=== PATIENT | female | born 1995 | race Two or more races ===

== ENCOUNTER 2018-01-02 15:41 | Outpatient (CLI) | payer OTHER ==
--- NOTE | 2018-01-03 10:13 | Ultrasound Report ---
Procedure Date: 01/02/2018 Accession Number: [id number] / [id number] Procedure: US - OB First Trimester CPT Code: FULL RESULT: EXAM: FIRST TRIMESTER OBSTETRIC ULTRASOUND (Less than 11 weeks) EXAM DATE: 01/02/2018 04:09 PM. CLINICAL HISTORY: Positive test. LMP: Unknown. COMPARISONS: None. TECHNIQUE: Transabdominal and transvaginal ultrasound examination with static image documentation. CLINICAL DATES: Unknown. ASSESSMENT: Gestational Sac: Single intrauterine. Mean gestational sac diameter: 20.8 mm = 6 weeks 4 days. Embryo: CRL (crown-rump length) 12.5 mm = 7 weeks 3 days. Cardiac activity: 142 beats per minute. Yolk sac: 3.1 mm. Amniotic fluid: Not accurately assessed at this gestational age. Early placenta: Not visible at this gestational age. Other: Small perigestational collection measuring 11 x 7 x 6 mm is seen. MATERNAL STRUCTURES: Uterus: Anteverted. Unremarkable. Cervix: Closed. Right Ovary/Adnexa: A tiny 8 mm cyst is seen in the right adnexa adjacent to the ovary. Within the ovary a small collapsed corpus luteal cyst is suggested. The ovary measures 3.0 x 2.2 x 2.0 cm, volume 7 cc. Left Ovary/Adnexa: Left ovary appears normal. Several small simple appearing cysts are seen in the left adnexa adjacent to the left ovary, largest measuring 2.8 cm. The ovary measures 2.4 x 1.6 x 2.0 cm, volume 4 cc. Free Fluid: Minimal, left adnexa region. Other: None. IMPRESSION: 1. Single viable intrauterine at EGA 7 weeks 3 days with MODESTA 08/18/18 based on crown-rump length. 2. Assigned dating is MODESTA 08/18/18 based on current ultrasound. 3. Minimal perigestational fluid collection seen. 4. Simple-appearing paraovarian cyst seen bilaterally, largest measuring 2.8 cm. Ovaries are otherwise normal. RADIA
== END 2018-01-02 15:42 | disposition home or self-care (01) ==
LOC: DI 15:41
PROVIDERS: ATTEND Nurse Practitioner Obstetrics & Gynecology
DX: Z32.01 Encounter for pregnancy test, result positive (principal)
CPT/HCPCS: 76801; 76817

== ENCOUNTER 2018-01-10 10:35 | Outpatient (CLI) | payer OTHER ==
[2018-01-10 11:18] LABS: BASOPHILS # (AUTO) 0.1 10^3/uL (0.0-0.1); BASOPHILS % (AUTO) 0.7 %; EOSINOPHILS # (AUTO) 0.1 10^3/uL (0.0-0.7); EOSINOPHILS % (AUTO) 0.7 %; HGB - HEMOGLOBIN 13.2 g/dL (12.0-16.0); LYMPHOCYTES # (AUTO) 1.6 10^3/uL (1.5-3.5); LYMPHOCYTES % (AUTO) 20.6 %; MEAN CORPUSCULAR HEMOGLOBIN 29.1 pg (27.0-31.0); MEAN CORPUSCULAR HGB CONC 35.1 g/dL (32.0-36.0); MEAN PLATELET VOLUME 8.9 fL (7.9-10.8); MONOCYTES # (AUTO) 0.4 10^3/uL (0.0-1.0); MONOCYTES % (AUTO) 4.6 %; NEUTROPHILS # (AUTO) 5.6 10^3/uL (1.5-6.6); NEUTROPHILS % (AUTO) 73.4 %; PLT - PLATELET COUNT 203 10^3/uL (130-450); RED BLOOD COUNT 4.53 10^6/uL (4.20-5.40); WHITE BLOOD COUNT 7.6 x10^3/uL (4.8-10.8)
[2018-01-10 11:37] LABS: BILIRUBIN,URINE NEGATIVE (NEGATIVE); GLUCOSE, URINE (UA) NEGATIVE (NEGATIVE); KETONES,URINE (UA) NEGATIVE (NEGATIVE); LEUKOCYTE ESTERASE, URINE NEGATIVE (NEGATIVE); NITRITE,URINE NEGATIVE (NEGATIVE); OCCULT BLOOD,URINE NEGATIVE (NEGATIVE); PH,URINE 6.5 PH (5.0-7.5); PROTEIN,URINE NEGATIVE (NEGATIVE); UROBILINOGEN,URINE 0.2 (NORMAL) E.U./dL (NORMAL)
[2018-01-10 11:38] LABS: CLARITY,URINE CLEAR (CLEAR)
[2018-01-10 11:45] LABS: BACTERIA,URINE Rare /HPF (None Seen); RBC,URINE 0-5 /HPF (0-5); SQUAMOUS EPITHELIAL CELL,UR FEW Squamous (<= Few)
[2018-01-11 13:01] LABS: HEPATITIS B SURFACE ANTIGEN NON-REACTIVE (NON-REACTIVE)
[2018-01-11 13:34] LABS: HEPATITIS C ANTIBODY NON-REACTIVE (NON-REACTIVE)
[2018-01-11 14:07] LABS: HIV AG/AB 4TH GEN NON-REACTIVE (NON-REACTIVE)
== END 2018-01-10 10:36 | disposition home or self-care (01) ==
LOC: LAB 10:35
PROVIDERS: ATTEND Nurse Practitioner Obstetrics & Gynecology
DX: Z36.9 Encounter for antenatal screening, unspecified (principal)
CPT/HCPCS: 36415; 80306; 81001; 81599; 85025; 86592; 86762; 86803; 86850; 86900; 86901; 87340; 87389; 87491; 87591

== ENCOUNTER 2018-01-10 12:00 | Outpatient (CLI) | payer OTHER ==
[2018-01-10 14:50] LABS: MUDS CUTOFF CONCENTRATIONS CUTOFF CONC BELOW:
[2018-01-10 15:46] LABS: AMPHETAMINE SCREEN,URINE NEGATIVE (NEGATIVE); BENZODIAZEPINES SCREEN, URINE NEGATIVE (NEGATIVE); COCAINE SCREEN URINE NEGATIVE (NEGATIVE); METHADONE SCREEN, URINE NEGATIVE (NEGATIVE); METHAMPHETAMINES SCREEN, URINE NEGATIVE (NEGATIVE); OPIATE SCREEN, URINE NEGATIVE (NEGATIVE); OXYCODONE SCREEN, URINE NEGATIVE (NEGATIVE); PROPOXYPHENE SCREEN, URINE NEGATIVE (NEGATIVE); TRICYCLIC ANTIDEPRESSANT,URINE NEGATIVE (NEGATIVE)
== END 2018-01-10 12:01 | disposition home or self-care (01) ==
LOC: LAB.R 12:00
PROVIDERS: ATTEND Nurse Practitioner Obstetrics & Gynecology
DX: Z36.9 Encounter for antenatal screening, unspecified (principal)
CPT/HCPCS: 80306; 87491; 87591

== ENCOUNTER 2018-02-07 14:22 | Outpatient (CLI) | payer OTHER, MEDICAID ==
[2018-02-07 16:35] LABS: HB2 TOTAL 14.2 g/dL; HEMOGLOBIN A1C 0.42 g/dL; HEMOGLOBIN A1C % 4.9 % (4.6-6.2)
== END 2018-02-07 14:23 | disposition home or self-care (01) ==
LOC: LAB 14:22
PROVIDERS: ATTEND Registered Nurse
DX: O99.211 Obesity complicating pregnancy, first trimester (principal); R46 Symptoms and signs involving appearance and behavior
CPT/HCPCS: 36415; 81599; 82950; 83036; 84597

== ENCOUNTER 2018-03-07 09:56 | Outpatient (CLI) | payer OTHER, MEDICAID | END 2018-03-07 09:57 | disposition home or self-care (01) | LOC: LAB 09:56 | PROVIDERS: ATTEND Registered Nurse | DX: R46 Symptoms and signs involving appearance and behavior (principal) | CPT/HCPCS: 36415; 81599 ==

== ENCOUNTER 2018-03-24 14:22 | Emergency (ER) | payer OTHER, MEDICAID ==
--- NOTE | 2018-03-24 14:41 | ED Physician Documentation ---
History of Present Illness - Stated complaint Stated Complaint: CHEST PX - Chief complaint Chief Complaint: General - Additonal information Additional information: hx from pt 23 y/o f approx 18 weeks uncomplicated course so far pt states she has had episodes of soa and chest pressure throughout her but more severe and lasting up to a few hr more recently so came to ER to get it checked out CP is described as pressure, anterior, relieved with rest no fever no cough no travel no sig or asymmetrical leg swelling Review of Systems Constitutional: denies: Fever, Chills Cardiac: reports: Chest pain / pressure Respiratory: reports: Dyspnea. denies: Cough GI: denies: Abdominal Pain, Nausea, Vomiting : reports: Now EGA Musculoskeletal: denies: Extremity swelling Endocrine: denies: Easy bruising / bleeding Immunocompromised: denies: Immunocompromised PD PAST MEDICAL HISTORY - Present Medications Home Medications: Ambulatory Orders Medication Instructions Recorded Confirmed Metformin HCl 1,500 mg PO 03/24/18 raNITIdine [Zantac] 150 mg PO BID #14 tablet 03/24/18 - Allergies Allergies/Adverse Reactions: Allergies Allergy/AdvReac Type Severity Reaction Status Date / Time No Known Drug Allergies Allergy Verified 03/24/18 14:27 PD ED PE NORMAL - Vitals Vital signs reviewed: Yes - HEENT HEENT: Atraumatic - Cardiac Cardiac: RRR, No murmur - Respiratory Respiratory: No respiratory distress, Clear bilaterally - Abdomen Abdomen: Soft, Non tender, Other (gravid) - Derm Derm: Normal color - Extremities Extremities: Normal ROM s pain, No edema, No calf tenderness / cord - Neuro Neuro: Alert and oriented X 3 Results - Vitals Vitals: Vital Signs - 24 hr 03/24/18 03/24/18 14:24 15:11 Temperature 36.9 C Heart Rate 86 86 Respiratory 16 Rate Blood Pressure 112/80 O2 Saturation 99 Oxygen O2 Source Room air - EKG (time done) 1430 Rate: Rate (enter#) (88) Rhythm: NSR [place]: Normal Intervals: Normal HI Ischemia: Normal ST segments Other comments: Other comments (no S1 Q3 T3 RAD RBBB or tachycardia) - Labs Labs: Laboratory Tests 03/24/18 03/24/18 03/24/18 14:55 14:55 14:55 WBC 8.7 RBC 4.41 Hgb 13.0 Hct 36.7 L MCV 83.2 MCH 29.4 MCHC 35.3 RDW 14.0 Plt Count 187 MPV 9.4 Neut # (Auto) 6.7 H Lymph # (Auto) 1.6 [place] # (Auto) 0.4 Eos # (Auto) 0.0 Baso # (Auto) 0.1 Absolute Nucleated RBC 0.00 Nucleated RBC % 0.0 D-Dimer Sodium 136 Potassium 4.2 Chloride 105 Carbon Dioxide 24 Anion Gap 7.0 BUN < 5 L Creatinine 0.5 Estimated GFR (MDRD) 150 Glucose 88 Calcium 8.8 Total Bilirubin 0.4 AST 18 ALT 14 Alkaline Phosphatase 50 Troponin I < 0.04 Total Protein 6.6 L Albumin 3.7 Globulin 2.9 Albumin/Globulin Ratio 1.3 Lipase 28 03/24/18 14:55 WBC RBC Hgb Hct MCV MCH MCHC RDW Plt Count MPV Neut # (Auto) Lymph # (Auto) [place] # (Auto) Eos # (Auto) Baso # (Auto) Absolute Nucleated RBC Nucleated RBC % D-Dimer 232.2 Sodium Potassium Chloride Carbon Dioxide Anion Gap BUN Creatinine Estimated GFR (MDRD) Glucose Calcium Total Bilirubin AST ALT Alkaline Phosphatase Troponin I Total Protein Albumin Globulin Albumin/Globulin Ratio Lipase PD MEDICAL DECISION MAKING - ED course ED course: no fever cough and clear lungs so do not think CXR will be helpful and will just expose fetus to radiation EKG s acute ischemia and neg trop after numerous episodes of pain lasting at least 3 hr for a week not anemic and d-dimer neg - plus not tachy tachypneic or hypoxic - so doubt PE might merit an echo but will need to be done as an outpt as gone for the day now Departure - Departure Disposition: 01 Home, Self Care Clinical Impression: Chest pain Qualifiers: Chest pain type: unspecified Qualified Code(s): R07.9 - Chest pain, unspecified Condition: Good Instructions: ED Chest Pain Atypical Unkn Cause Follow-Up: QUENTIN SARGENT PA-C [Primary Care Provider] - [facility] [Provider Group] Prescriptions: raNITIdine [Zantac] 150 mg PO BID #14 tablet Comments: All of your tests came back fine The EKG and blood work do not indicate a heart attack. Your lungs sound clear and you don't have a fever or cough, so I doubt pneumonia You are not anemic And the blood test for clots in your lungs was negative too. So we have ruled out some of the most dangerous causes of chest pain and trouble breathing But I am not sure what is causing the symptoms There are heart problems that can develop in and I recommend your OB order an ultrasound of your heart called an echocardiogram (that test can't be done in the ER at this time) It is also possible the chest pain is due to heart burn which is common in and gets worse as the you get further along - you can try taking zantac which is safe in
[2018-03-24 15:02] LABS: BASOPHILS # (AUTO) 0.1 10^3/uL (0.0-0.1); BASOPHILS % (AUTO) 0.6 %; EOSINOPHILS % (AUTO) 0.5 %; LYMPHOCYTES # (AUTO) 1.6 10^3/uL (1.5-3.5); LYMPHOCYTES % (AUTO) 17.8 %; MEAN CORPUSCULAR HEMOGLOBIN 29.4 pg (27.0-31.0); MEAN CORPUSCULAR HGB CONC 35.3 g/dL (32.0-36.0); MEAN CORPUSCULAR VOLUME 83.2 fL (81.0-99.0); MEAN PLATELET VOLUME 9.4 fL (7.9-10.8); MONOCYTES # (AUTO) 0.4 10^3/uL (0.0-1.0); MONOCYTES % (AUTO) 4.8 %; NEUTROPHILS # (AUTO) 6.7 10^3/uL (1.5-6.6); NEUTROPHILS % (AUTO) 76.3 %; PLT - PLATELET COUNT 187 10^3/uL (130-450); RED BLOOD COUNT 4.41 10^6/uL (4.20-5.40); WHITE BLOOD COUNT 8.7 x10^3/uL (4.8-10.8)
[2018-03-24 15:27] LABS: ALBUMIN 3.7 g/dL (3.2-5.5); ALBUMIN/GLOBULIN RATIO 1.3 (1.0-2.2); ALKALINE PHOSPHATASE 50 IU/L (42-121); ALT ALANINE AMINOTRANSFERASE 14 IU/L (10-60); AST ASPARTATE AMINOTRANSFERASE 18 IU/L (10-42); BILIRUBIN,TOTAL 0.4 mg/dL (0.2-1.0); BUN - BLOOD UREA NITROGEN < 5 mg/dL (6-20); CALCIUM 8.8 mg/dL (8.5-10.3); CARBON DIOXIDE - CO2 24 mmol/L (21-32); CHLORIDE 105 mmol/L (101-111); CREATININE 0.5 mg/dL (0.4-1.0); GFR - MDRD 150 (>89); GLUCOSE 88 mg/dL (70-100); LIPASE 28 U/L (22-51); SODIUM 136 mmol/L (135-145); TOTAL PROTEIN 6.6 g/dL (6.7-8.2)
[2018-03-24 16:08] VITALS: BP 101/72
== END 2018-03-24 16:25 | disposition home or self-care (01) ==
LOC: ED 14:22
DX: O26.892 Other specified pregnancy related conditions, second trimester (principal); R07.9 Chest pain, unspecified; Z3A.18 18 weeks gestation of pregnancy
CPT/HCPCS: 36415; 80053; 83690; 84484; 85025; 85379; 93005; 99283

== ENCOUNTER 2018-03-29 12:31 | Outpatient (CLI) | payer OTHER, MEDICAID ==
--- NOTE | 2018-03-30 10:22 | Ultrasound Report ---
Reason: ENCOUNTER FOR SUPRVSN OF NORMAL ,SECOND T Procedure Date: 03/29/2018 Accession Number: [id number] / [id number] Procedure: US - OB Detailed Eval CPT Code: FULL RESULT: EXAM: COMPLETE OBSTETRICAL ULTRASOUND EXAM DATE: 03/29/2018 02:49 PM. CLINICAL HISTORY: anatomic survey. COMPARISON: None. TECHNIQUE: Real-time sonographic evaluation of the fetus performed by the home health caregiver. Multiple district sales representative static images were saved for review. Additional transvaginal imaging to more accurately evaluate cervical length/placental position/etc. DATING: Established EGA 20 weeks 2 days with MODESTA 08/16/2018 based on LMP. EGA 20 weeks 5 days with MODESTA 08/18/2018 based on first ultrasound. EGA 20 weeks 2 days with MODESTA 08/16/2018 based on the current ultrasound. GENERAL EVALUATION Addison . Cardiac activity: 152 bpm. movement: Visualized. Presentation: Cephalic. Placenta: Posterior position. No evidence for previa. Umbilical cord: 3 vessel cord. Central placental cord origin. Amniotic fluid: Subjectively normal. MVP 3.1 cm. ATUL 10.4 BIOMETRY Bi-Parietal Diameter (BPD): 4.5 cm, 19 weeks 5 days Head Circumference (HC): 17.4 cm, 19 weeks 6 days Abdominal Circumference (AC): 14.8 cm, 20 weeks 0 days Femur Length (FL): 3.0 cm, 19 weeks 0 days Estimated Weight: 306 g. Percentile not calculated on this software under 22 weeks. ANATOMY The intracranial structures, profile, face/nose/lips, spine, 4 chamber heart and outflow tracts, stomach, abdominal wall and cord insertion, diaphragm, kidneys, bladder, and extremities were visualized and demonstrate no abnormality. MATERNAL STRUCTURES Uterus: Unremarkable. Cervix: Long and closed. Transabdominal length 4.2 cm. Right ovary/adnexa: Unremarkable. Left ovary/adnexa: Unremarkable. Free fluid: None. IMPRESSION: 1. Addison live intrauterine with gestational age 20 weeks 2 days based on LMP. 2. Estimated weight is within expected limits for assigned dating. 3. No anatomic abnormalities are detected at this time. RADIA
== END 2018-03-29 12:32 | disposition home or self-care (01) ==
LOC: DI 12:31
PROVIDERS: ATTEND Registered Nurse
DX: Z34.82 Encounter for supervision of other normal pregnancy, second trimester (principal)
CPT/HCPCS: 76811

== ENCOUNTER 2018-05-11 12:57 | Outpatient (CLI) | payer OTHER, MEDICAID ==
[2018-05-11 13:22] LABS: HGB - HEMOGLOBIN 12.9 g/dL (12.0-16.0); MEAN CORPUSCULAR HEMOGLOBIN 29.2 pg (27.0-31.0); MEAN CORPUSCULAR HGB CONC 34.5 g/dL (32.0-36.0); MEAN CORPUSCULAR VOLUME 84.6 fL (81.0-99.0); MEAN PLATELET VOLUME 9.2 fL (7.9-10.8); RED BLOOD COUNT 4.44 10^6/uL (4.20-5.40); RED CELL DISTRIBUTION WIDTH 13.7 % (12.0-15.0); WHITE BLOOD COUNT 10.2 x10^3/uL (4.8-10.8)
== END 2018-05-11 12:58 | disposition home or self-care (01) ==
LOC: DI 12:57
PROVIDERS: ATTEND Registered Nurse
DX: R07.89 Other chest pain (principal); Z33.1 Pregnant state, incidental
CPT/HCPCS: 36415; 82950; 85027; 86850; 93306

== ENCOUNTER 2018-05-16 11:00 | Outpatient (CLI) | payer OTHER, MEDICAID | END 2018-05-16 11:01 | disposition home or self-care (01) | LOC: LAB 11:00 | PROVIDERS: ATTEND Registered Nurse | DX: O99.810 Abnormal glucose complicating pregnancy (principal) | CPT/HCPCS: 36415; 82951; 82952 ==

== ENCOUNTER 2018-05-29 14:32 | Outpatient (CLI) | payer OTHER, MEDICAID ==
--- NOTE | 2018-05-30 15:32 | Ultrasound Report ---
Reason: UTERINE SIZE DATE DISCREPANCY, ANTEPARTUM UNSP TRI Procedure Date: 05/29/2018 Accession Number: [id number] / [id number] Procedure: US - OB F/U or Repeat CPT Code: FULL RESULT: EXAM: FOLLOW-UP OBSTETRICAL ULTRASOUND EXAM DATE: 05/29/2018 03:34 PM. CLINICAL HISTORY: UTERINE SIZE DATE DISCREPANCY, COMPARISON: 03/29/2018 ultrasound TECHNIQUE: Real-time sonographic evaluation of the fetus performed by the ear mold laboratory technician. Multiple sales representative business courses static images were saved for review. DATING: Established EGA 28 weeks 6 days with MODESTA 08/15/2018 based on prior ultrasound and last menstrual period. EGA 29 weeks 6 days with MODESTA 08/08/2018 based on the current ultrasound. GENERAL EVALUATION Addison . Cardiac activity: 148 bpm. movement: Present Presentation: Cephalic. Placenta: Posterior position. Amniotic fluid: Normal ATUL 16.6 cm. MVP 6.1 cm. BIOMETRY Bi-Parietal Diameter (BPD): 7.6 cm, 30 weeks 3 days Head Circumference (HC): 28.2 cm, 30 weeks 6 days Abdominal Circumference (AC): 25.4 cm, 29 weeks 3 days Femur Length (FL): 5.5 cm, 29 weeks 0 days Estimated Weight: 1420grams IMPRESSION: 1. Addison intrauterine with gestational age 29 weeks 6 days based on composite ultrasound measurements today. 2. Estimated weight is 1420 g. 3. Normal interval growth compared to 03/29/2018. BRAYDONA
== END 2018-05-29 14:33 | disposition home or self-care (01) ==
LOC: DI 14:32
PROVIDERS: ATTEND Registered Nurse
DX: O26.843 Uterine size-date discrepancy, third trimester (principal); Z3A.29 29 weeks gestation of pregnancy
CPT/HCPCS: 76816

== ENCOUNTER 2018-07-10 13:04 | Outpatient (CLI) | payer OTHER, MEDICAID ==
--- NOTE | 2018-07-11 10:19 | Ultrasound Report ---
Reason: UTERINE SIZE DATE DISCREPANCY,ANTEPARTUM,UNSPECIFI Procedure Date: 07/10/2018 Accession Number: [id number] / [id number] Procedure: US - OB F/U or Repeat CPT Code: FULL RESULT: EXAM: FOLLOW-UP OBSTETRICAL ULTRASOUND EXAM DATE: 07/10/2018 02:00 PM. CLINICAL HISTORY: Uterine size-date discrepancy. COMPARISON: OB F/U OR REPEAT 05/29/2018 3:12 PM. TECHNIQUE: Real-time sonographic evaluation of the fetus performed by the him specialist. DATING: Established EGA 34 weeks 6 days with MODESTA 08/15/2018 based on physician stated dating. EGA 34 weeks 6 days with MODESTA 08/15/2018 based on the current ultrasound. GENERAL EVALUATION Addison . Cardiac activity: 140 bpm. movement: Visualized. Presentation: Cephalic. Placenta: Posterior position. Amniotic fluid: Normal. ATUL 14.5 cm. MVP 4.6 cm. BIOMETRY Bi-Parietal Diameter (BPD): 8.9 cm, 36 weeks 0 days Head Circumference (HC): 32.2 cm, 36 weeks 2 days Abdominal Circumference (AC): 30.3 cm, 34 weeks 2 days Femur Length (FL): 6.4 cm, 32 weeks 6 days Estimated Weight: 2392 g, 30th percentile for 34 weeks 6 days. ANATOMY: The kidneys and bladder are imaged. Right renal pelvis diameter measures 5.9 mm and left renal pelvis diameter 5.3 mm (both within normal limits at this gestational age). MATERNAL STRUCTURES Cervix: Long and closed. Transabdominal cervical length 5.0 cm. IMPRESSION: 1. Addison live intrauterine with gestational age 34 weeks 6 days based on stated MODESTA. 2. Estimated weight is within expected limits for assigned dating. 3. Normal interval growth compared to 05/29/2018. 4. Normal amniotic fluid volume. RADIA
== END 2018-07-10 13:05 | disposition home or self-care (01) ==
LOC: DI 13:04
PROVIDERS: ATTEND Registered Nurse
DX: O26.849 Uterine size-date discrepancy, unspecified trimester (principal); Z3A.34 34 weeks gestation of pregnancy
CPT/HCPCS: 76816

== ENCOUNTER 2018-07-21 11:58 | Outpatient (CLI) | payer OTHER, MEDICAID | END 2018-07-21 23:59 | disposition home or self-care (01) | LOC: LAB.R 11:58 | PROVIDERS: ATTEND Nurse Practitioner Obstetrics & Gynecology | DX: Z36.9 Encounter for antenatal screening, unspecified (principal) | CPT/HCPCS: 87491; 87591; 87797 ==

== ENCOUNTER 2018-07-21 14:33 | Outpatient (CLI) | payer OTHER, MEDICAID ==
[2018-07-22 11:35] LABS: HEPATITIS C ANTIBODY NON-REACTIVE (NON-REACTIVE)
[2018-07-22 14:16] LABS: HIV AG/AB 4TH GEN NON-REACTIVE (NON-REACTIVE)
[2018-07-25 11:41] LABS: HSV 1 IGG TYPE SPECIFIC AB <0.90 index; HSV 2 IGG TYPE SPECIFIC AB <0.90 index
== END 2018-07-21 14:34 | disposition home or self-care (01) ==
LOC: LAB 14:33
PROVIDERS: ATTEND Nurse Practitioner Obstetrics & Gynecology
DX: Z36.9 Encounter for antenatal screening, unspecified (principal)
CPT/HCPCS: 36415; 81599; 86592; 86695; 86696; 86803; 87389; 87491; 87591; 87797

== ENCOUNTER 2018-08-07 19:33 | Inpatient (IN) | payer OTHER, MEDICAID ==
[2018-08-07] MEDS ORDERED: PENICILLIN G POTASSIUM 5,000,000 UNIT in SODIUM CHLORIDE 0.9% MINIBAG 100 ML IV ONE (20:00)
[2018-08-07] MEDS ORDERED: ONDANSETRON 4 MG/2 ML VIAL IVP PRN ×2 (20:00→21:43)
--- NOTE | 2018-08-07 20:29 | HISTORY & PHYSICAL EXAMINATION ---
Admit History - Visit Reason Visit Reason: Other - : 1 Parity: 0 Premature: 0 Ectopic: 0 : 0 Care: positive: [facility] Risk/History: positive: None Complications This : positive: None - Mother's Labs Mother's Blood Type: positive: A Mother's RH: positive: Positive GBS: positive: Group B Strep Positive Rubella Status: positive: Immune Meds/Allgy - Home Medications Home Medications: Ambulatory Orders Medication Instructions Recorded Confirmed Metformin HCl 1,500 mg PO 03/24/18 raNITIdine [Zantac] 150 mg PO BID #14 tablet 03/24/18 - Allergies Allergies/Adverse Reactions: Allergies Allergy/AdvReac Type Severity Reaction Status Date / Time No Known Drug Allergies Allergy Verified 03/24/18 14:27 Review of Systems - Constitutional Constitutional: denies: Fatigue, Fever, Chills, Malaise - Eyes Eyes: denies: Blurred vision, Spots in vision, Vision loss, Dipolpia - Cardiovascular Cariovascular: denies: Irregular heart rate, Palpitations, Chest pain, Edema - Respiratory Respiratory: denies: Cough, SOB at rest - Gastrointestinal Gastrointestinal: denies: Abdominal pain, Constipation, Diarrhea, Nausea, Vomiting - Genitourinary Genitourinary: denies: Dysuria - Integumentary Integumentary: reports: Pruritis. denies: Rash - Psychiatric Psychiatric: denies: Depression, Anxiety Physical - Abdominal Exam Contraction Intensity: positive: Mild Uterine Resting Tone: positive: Soft - Monitoring Heart Rate Baseline: 130 Strip Review: positive: Category I - Presentation Presentation: positive: Vertex - Vaginal Exam Membranes: positive: Membranes intact Plan for Labor - Plan For Labor I expect patient to be DC'd or transferred within 96 hours.: Yes Plan for Labor: HPI: Ira is a 23yo @ 38.6wks gestation by LMP. [facility] prior to elective IOL at 39wks gestation. Her has been complicated only by episodes of SOB with subsequent echo which was WNL. She denies VB or Lof. Denies contractions. Reports +FM. She denies ARITA, visual disturbances, RUQ or epigastric pain and denies edema. She does not itching on the soles of her feet which is worsen at night which she had not previously mentioned in her visits. She states this has been going on for the last couple of weeks. Her has also been complicated by a hx of PCOS which did not require ovulation induction and her current obesity. Her early 1 hour GTT and Hgb A1C were WNL. Her 1 hr GTT was abnormal but her 3 hour GTT was WNL. Physical Exam: Normocephalic, atraumtic Mood is good PERRLA Heart RRR w/o M/G/R Lungs CTAB SVE deferred - last check in the office last week 3/-4/50/-2, vertex Bilateral LE's no edema Assessment: 23yo @ 38.5wks gestation Pre-induction administration of penicillin for GBS prophylaxis initiated GBS positive FHR Category I Plan: Continue administration of IV penicillin for GBS prophylaxis per protocol Epidural at 0000 with in-patient admission AROM and pitocin at 0100 on 08/08/2018 Anticipate spontaneous vaginal delivery. Pt and family in agreement with plan and deny further questions or concerns.
[2018-08-07] MEDS: LACTATED RINGERS 1,000 ML IV SCH (21:04)
[2018-08-07] MEDS: SODIUM CHLORIDE FLUSH 0.9% 10 ML SYRINGE IVP PRN (21:05)
[2018-08-07] MEDS ORDERED: fent/BUPIV 2 MCG/0.125% 250 ML EP ONE (21:30)
[2018-08-07 21:36] LABS: BASOPHILS # (AUTO) 0.1 10^3/uL (0.0-0.1); BASOPHILS % (AUTO) 0.8 %; EOSINOPHILS # (AUTO) 0.1 10^3/uL (0.0-0.7); EOSINOPHILS % (AUTO) 0.6 %; HGB - HEMOGLOBIN 12.3 g/dL (12.0-16.0); LYMPHOCYTES # (AUTO) 2.2 10^3/uL (1.5-3.5); LYMPHOCYTES % (AUTO) 21.1 %; MEAN CORPUSCULAR HGB CONC 33.2 g/dL (32.0-36.0); MEAN CORPUSCULAR VOLUME 81.5 fL (81.0-99.0); MEAN PLATELET VOLUME 9.3 fL (7.9-10.8); MONOCYTES # (AUTO) 0.6 10^3/uL (0.0-1.0); MONOCYTES % (AUTO) 5.6 %; NEUTROPHILS # (AUTO) 7.5 10^3/uL (1.5-6.6); NEUTROPHILS % (AUTO) 71.9 %; PLT - PLATELET COUNT 199 10^3/uL (130-450); RED BLOOD COUNT 4.55 10^6/uL (4.20-5.40); RED CELL DISTRIBUTION WIDTH 15.1 % (12.0-15.0); WHITE BLOOD COUNT 10.4 x10^3/uL (4.8-10.8)
--- NOTE | 2018-08-07 21:39 | ANESTHESIA ---
Pre-Anesthesia VS, & Labs - Diagnosis - Procedure Epidural Height 5 ft 3 in Weight (kg) 99.79 kg Body Mass Index 33.6 - Is Patient ?: Yes - Lab Results Lab results reviewed: Yes Home Medications and Allergies Active Medications Lactated Ringer's (Lr) 1,000 mls @ 100 mls/hr IV .Q10H CONNER Last Admin: 08/07/18 21:04 Dose: 100 mls/hr Penicillin G Potassium 2,500, (000 unit/ Sodium Chloride) 100 mls @ 200 mls/hr IV Q4H CONNER Oxytocin/Sodium Chloride (Pitocin/Sodium Chloride) 500 mls @ 1 mls/hr IV TITR CONNER; Protocol Ondansetron HCl (Zofran Inj) 4 mg IVP Q4HR PRN PRN Reason: Nausea / Vomiting Sodium Chloride (Normal Saline Flush 0.9%) 10 ml IVP 0100,0900,1700 CONNER Sodium Chloride (Normal Saline Flush 0.9%) 10 ml IVP PRN PRN PRN Reason: NEEDED PER PROVIDER ORDERS Last Admin: 08/07/18 21:05 Dose: 10 ml Metformin HCl 1,500 mg PO 03/24/18 Allergies/Adverse Reactions: Allergies Allergy/AdvReac Type Severity Reaction Status Date / Time No Known Drug Allergies Allergy Verified 03/24/18 14:27 Anes History & Medical History - Anesthetic History Anesthesia Complications: reports: No previous complications Family history of Anesthesia Complications: Denies Family history of Malignant Hyperthermia: Denies - Medical History Cardiovascular: reports: None Pulmonary: reports: None Gastrointestinal: reports: None Urinary: reports: None Neuro: reports: None Musculoskeletal: reports: None Endocrine/Autoimmune: reports: None Blood Disorders: reports: None Skin: reports: None Smoking Status: Never smoker Psychosocial: reports: No issues indicated - Obstetrical History : 1 Parity: 0 Events: positive: None Complications: positive: None Exam General: Alert, Oriented x3, Cooperative Dental: WNL Mouth Openin Fingerbreadth Neck Mobility: Normal Mallampati classification: II Thyromental Distance: 4-6 cm Respiratory: Lungs clear Cardiovascular: Regular rate, No murmurs Plan Anesthesia Type: Epidural Regional Block: Per Surgeon's request for Post Op pain control Consent for Procedure(s) Verified and Reviewed: Yes Code Status: Attempt Resuscitation ASA classification: 2-Mild systemic disease Is this case an emergency?: No
[2018-08-07] MEDS ORDERED: NALBUPHINE 10 MG/ML AMP IVP PRN (21:43)
[2018-08-07] MEDS ORDERED: LACTATED RINGERS 500 ML IV ONE (21:43)
[2018-08-07] MEDS ORDERED: NALOXONE 0.4 MG/ML VIAL IVP PRN (21:43)
[2018-08-07] MEDS ORDERED: METOCLOPRAMIDE 10 MG/2 ML VIAL IVP PRN (21:43)
[2018-08-07] MEDS ORDERED: ePHEDrine 50 MG/ML VIAL IVP PRN (21:43)
[2018-08-07] MEDS ORDERED: fent/BUPIV 2 MCG/0.125% 250 ML EP PRN (21:43)
[2018-08-07] MEDS ORDERED: diphenhydrAMINE INJ 50 MG/ML VIAL IVP PRN (21:43)
--- NOTE | 2018-08-08 02:08 | PROVIDER PROGRESS NOTE ---
Labor Progress Note - Uterine Monitoring Uterine Monitoring Mode: positive: External toco Contraction Frequency (min/apart): intermittent Contraction Intensity: positive: Mild Uterine Resting Tone: positive: Soft - Monitoring Monitor Mode: positive: External ultrasound Heart Rate Baseline: 140 Heart Rate Variability: positive: Moderate (6-25 bmp) Accelerations: positive: Present, 15x15 Decelerations: positive: Variable Strip Review: positive: Category I - Vaginal Exam Dilation (in cm): 4 Effacement (%): 50 Station: -1 Cervical Position: Midposition - Labor Progress Note Labor Progress Note/Additional Text: S: Laying comfortably with epidural in reclined position with a left tilt. She has gotten a slight amount of rest but overall has been unable to sleep - partially from anticipation and partially due to the nature of being in a hospital setting. Anxious to get the process of induction going. O: SVE 4/50/-1, midposition, soft, vertex. Contractions intermittent FHR baseline 140s, moderate variability. + accels, one deceleration which was blood pressure dependent (83/41) and resolved with position change and fluid bolus. Overall reassuring BP 117/70, HR 80 AROM moderate amount of clear fluid A: 23yo @ 39.0wkls gestation by LMP=initial U/S GBS positive - s/p loading dose of penicillin Elective IOL FHR Category I P: Continuous monitoring Epidural for pain management Continue penicillin for GBS prophylaxis per protocol. Initiate pitocin with titrate per protocol for IOL. Anticipate spontaneous vaginal delivery. Pt, family at the bedside, and L&D RN all in agreement with above plan and deny further questions or concerns at this time. Reevaluate in 4 hours or sooner PRN.
[2018-08-08] MEDS: PENICILLIN G POTASSIUM 2,500,000 UNIT in SODIUM CHLORIDE 0.9% 100ML 100 ML IV SCH ×3 (02:22→08:53)
[2018-08-08] MEDS: OXYTOCIN/SODIUM CHLORIDE 500 ML IV SCH ×2 (02:30→09:00)
[2018-08-08] MEDS: LACTATED RINGERS 1,000 ML IV SCH (04:59)
[2018-08-08] MEDS ORDERED: TERBUTALINE 1 MG/ML VIAL SUBQ ONE (05:22)
[2018-08-08] MEDS ORDERED: CITRIC ACID/SODIUM CITRATE 15 ML UDC PO ONE (05:42)
--- NOTE | 2018-08-08 05:56 | PROVIDER PROGRESS NOTE ---
Labor Progress Note - Uterine Monitoring Uterine Monitoring Mode: positive: External toco Contraction Intensity: positive: Moderate to strong Uterine Resting Tone: positive: Soft - Monitoring Monitor Mode: positive: External ultrasound Heart Rate Baseline: 150 Heart Rate Variability: positive: Minimal (0-5 bpm), Moderate (6-25 bmp) Accelerations: positive: Absent Decelerations: positive: Late, Variable, Prolonged (>2x10 min), Recurrent (>50% x20 min) Strip Review: positive: Category II - Vaginal Exam Dilation (in cm): 5 Effacement (%): 80 Station: 0 Cervical Position: Midposition - Labor Progress Note Labor Progress Note/Additional Text: I was phoned to the bedside by the labor and delivery charge nurse who noted recurrent, steep variable deceleration to the 60s and a prolonged deceleration which was difficult to trace but registered via external ultrasound at 60bpm & 70bpm on multiple occasions. Her Pitocin was infusing at a max of 2mU/mL and was shut off prior to the onset of the prolonged deceleration and terbutaline was administered immediately following intrauterine resuscitative efforts. A scalp electrode was placed for adequate assessment of FHR. Dr. Rdz, stone layout marker physician notified and OR team mobilized. Upon my arrival the FHR had recovered with the cessation of contractions and baseline was 150bpm with moderate variability with intermittent periods of tachycarida. Currently category II tracing. Strip reviewed with the stone layout marker provider and the decision was made to proceed to delivery. Care handed to physician provider.
[2018-08-08] MEDS ORDERED: ceFAZolin 3 GM in SODIUM CHLORIDE 0.9% 100ML 100 ML IV ONE (05:59)
--- NOTE | 2018-08-08 06:04 | PROVIDER PROGRESS NOTE ---
Labor Progress Note - Uterine Monitoring Uterine Monitoring Mode: positive: External toco (none) Contraction Intensity: positive: Other Uterine Resting Tone: positive: Soft - Monitoring Monitor Mode: positive: Spiral electrode Heart Rate Baseline: 150 Heart Rate Variability: positive: Moderate (6-25 bmp) - Vaginal Exam Dilation (in cm): 5 Effacement (%): 80 Station: 0 - Labor Progress Note Labor Progress Note/Additional Text: Pt developed prolonged deceleration Jeffy of 70 running in the 80's for 6 min. Pit off, terbutaling, position change. O2. resusitation good suspect cord. R&B explained will do PLTC/S.
[2018-08-08] MEDS ORDERED: LIDOCAINE 2% 10 ML MDV ONE (06:10)
[2018-08-08] MEDS ORDERED: LACTATED RINGERS 1,000 ML IV ONE ×2 (06:37→07:39)
[2018-08-08] MEDS ORDERED: ePHEDrine 50 MG/ML VIAL IVP ONE (07:30)
[2018-08-08] MEDS ORDERED: fentaNYL 100 MCG/2 ML VIAL IVP ONE (07:30)
[2018-08-08] MEDS ORDERED: MORPHINE PF 5 MG/10 ML AMP EP ONE (07:30)
[2018-08-08] MEDS ORDERED: LIDOCAINE 2% 10 ML MDV SUBQ ONE (07:30)
[2018-08-08] MEDS ORDERED: KETOROLAC 30 MG/ML VIAL IVP ONE (07:30)
[2018-08-08] MEDS ORDERED: ACETAMINOPHEN 1,000 MG/100 ML 100 ML IV ONE (07:30)
[2018-08-08] MEDS ORDERED: OXYTOCIN 10 UNIT/ML VIAL IV ONE (07:30)
[2018-08-08] MEDS ORDERED: BUPIVACAINE 0.25% PF 30 ML VIAL SUBQ ONE (07:30)
[2018-08-08] MEDS ORDERED: diphenhydrAMINE 25 MG CAPSULE PO PRN (07:43)
[2018-08-08] MEDS ORDERED: SODIUM CHLORIDE FLUSH 0.9% 10 ML SYRINGE IVP PRN (07:43)
--- NOTE | 2018-08-08 07:53 | OPERATIVE REPORT ---
Operative Report - General Admit Date: 08/07/18 Procedure Date: 08/08/18 Planned Procedure: PLTC/S Pre-Op Diagnosis: intolerance of labor Procedure Performed: PLTC/S Post Op Diagnosis: Vulnerable cord - Procedure Note Primary Surgeon: Jah Rdz MD Secondary Surgeon: Gisell JEONG Anesthesia Provider: Caitlyn Estrada CRNA Anesthesia Technique: Epidural IV Fluids (mL): 1,500 Estimated Blood Loss (mL): 700 Urine Output (mL): 150 Indications: Vulnerable cord Complications: none - Other Other Information/Narrative: [id number]
[2018-08-08] MEDS ORDERED: LACTATED RINGERS 1,000 ML IV SCH (08:00)
[2018-08-08 08:09] LABS: BASOPHILS % (AUTO) 0.2 %; EOSINOPHILS % (AUTO) 0.1 %; HGB - HEMOGLOBIN 11.1 g/dL (12.0-16.0); LYMPHOCYTES # (AUTO) 1.3 10^3/uL (1.5-3.5); MEAN CORPUSCULAR HEMOGLOBIN 26.7 pg (27.0-31.0); MEAN CORPUSCULAR HGB CONC 32.1 g/dL (32.0-36.0); MEAN CORPUSCULAR VOLUME 83.1 fL (81.0-99.0); MEAN PLATELET VOLUME 9.3 fL (7.9-10.8); MONOCYTES # (AUTO) 0.8 10^3/uL (0.0-1.0); MONOCYTES % (AUTO) 5.5 %; NEUTROPHILS # (AUTO) 11.9 10^3/uL (1.5-6.6); NEUTROPHILS % (AUTO) 85.2 %; PLT - PLATELET COUNT 168 10^3/uL (130-450); RED BLOOD COUNT 4.15 10^6/uL (4.20-5.40)
[2018-08-08] MEDS: KETOROLAC 30 MG/ML VIAL IVP SCH ×3 (08:13→20:20)
[2018-08-08] MEDS: ACETAMINOPHEN 500 MG TABLET PO SCH ×2 (08:13→18:36)
--- NOTE | 2018-08-08 08:23 | OPERATIVE REPORT ---
DATE OF SERVICE: 08/08/2018 Physician: Jah Rdz MD PREOPERATIVE DIAGNOSIS: intolerance of labor. POSTOPERATIVE DIAGNOSES: intolerance of labor. PROCEDURES PERFORMED 1. Primary low transverse section. 2. Excision of left paratubal cyst. SURGEON: Jah Rdz MD. APPEALS RN: Gisell Lambert CNM, ARNP. ANESTHESIA: Epidural with Lea Estrada CRNA. ESTIMATED BLOOD LOSS: 700 mL. IV FLUIDS: 1500 mL. URINE OUTPUT: 150 mL. FINDINGS: Upon entering the abdominal cavity, there was a live male . At time of delivery, the Apgars were 9 and 9. Baby was right occiput transverse. There was cord, which was prominent around the baby's back, with little or no amniotic fluid in that area. The tubes, ovaries, and uterus all appeared to be within normal limits. Placenta was noted to be posterior. DESCRIPTION OF PROCEDURE: Following adequate spinal anesthesia, the patient was placed in the supine position with a roll under the right hip. At this point, she was prepped and draped in the usual fashion. Following a timeout, the procedure was commenced. A Pfannenstiel incision was carried down through subcutaneous tissue to the fascia. There was some difficulty with bleeding on the way in that was treated with electrocautery; but because of the need to proceed, continued. The fascia was incised transversely, and the incision was carried laterally using Elizalde scissors. The rectus was both bluntly and sharply dissected from the anterior sheath. There was some bleeding from a psychological operations officer on the right-hand side, which was treated initially with electrocautery but then with a suture of 2-0 Vicryl. The peritoneum was entered high. Care was taken to avoid injury to bowel or bladder at this point. The bladder flap was developed using Metzenbaum scissors as well as blunt dissection. A low transverse uterine incision was accomplished using a #10 blade and bandage scissors. The head of the infant was lifted out of the pelvis, delivered. The oropharynx was bulb suctioned. The remainder of the infant was delivered without difficulty. The cord was delayed clamped roughly 30 seconds to allow cord blood for the infant. At this point, the infant was handed to the supervisor bindery who was standing by. Cord blood samples were obtained, following which the placenta was manually delivered, the uterus exteriorized, wrapped in a moist lap, and cleansed in the internal portion with a dry lap. Additional adherent membranes were removed utilizing ring forceps. The incision was closed using a running locking suture of #0 Vicryl with an imbricating layer of #0 Vicryl. The incision was inspected, and no further bleeding was noted. At this point the cul-de-sac was irrigated, and then a left paratubal cyst, which was roughly 2.5 cm in diameter, was encountered. This was then removed utilizing a small LigaSure. Care was taken to avoid any injury to the fallopian tube on the left-hand side. The remainder of the pelvis appeared to be normal. The uterus was delivered back into the abdominal cavity, the gutters were irrigated, and the peritoneum was closed utilizing 2-0 Vicryl. The rectus was reapproximated with two [id number] of 2-0 Vicryl. At this point, the rectus was inspected for bleeding, none was noted, so the fascia was closed utilizing a looped 0 PDS. This was then irrigated, and the subcutaneous tissue was closed utilizing 2-0 Vicryl. The incision itself was closed with 4-0 Monocryl in a subcuticular stitch. A wound VAC was then applied following application of benzoin. The uterus was then expressed of clot. The patient tolerated the procedure well and was taken to recovery in stable condition. Sponge and needle counts were correct. TD: 08/08/2018 08:14 YUN
[2018-08-08] MEDS: SODIUM CHLORIDE FLUSH 0.9% 10 ML SYRINGE IVP SCH (08:54)
[2018-08-08] MEDS ORDERED: SODIUM CHLORIDE FLUSH 0.9% 10 ML SYRINGE IVP SCH (09:00)
[2018-08-08] MEDS: oxyCODONE 5 MG TABLET PO PRN (13:31)
[2018-08-08] MEDS: SIMETHICONE CHEW 80 MG TABLET PO SCH (14:14)
[2018-08-08] MEDS: DOCUSATE SODIUM 100 MG CAPSULE PO SCH ×2 (14:14→20:21)
[2018-08-08] MEDS: SODIUM CHLORIDE FLUSH 0.9% 10 ML SYRINGE IVP PRN (20:21)
[2018-08-09] MEDS: KETOROLAC 30 MG/ML VIAL IVP SCH (02:30)
[2018-08-09] MEDS: ACETAMINOPHEN 500 MG TABLET PO SCH ×3 (02:31→21:12)
[2018-08-09] MEDS: SODIUM CHLORIDE FLUSH 0.9% 10 ML SYRINGE IVP SCH (02:32)
[2018-08-09] MEDS: LACTATED RINGERS 1,000 ML IV SCH (05:12)
[2018-08-09] MEDS: SIMETHICONE CHEW 80 MG TABLET PO SCH ×4 (05:13→22:09)
[2018-08-09] MEDS: oxyCODONE 5 MG TABLET PO PRN ×3 (08:08→16:17)
[2018-08-09] MEDS: DOCUSATE SODIUM 100 MG CAPSULE PO SCH ×2 (08:09→22:09)
--- NOTE | 2018-08-09 08:33 | PROVIDER PROGRESS NOTE ---
Subjective - General Admit Date: 08/07/18 Procedure Date: 08/08/18 Post Op Days: 1 Procedure Performed: PLTC/S - Review of Systems Wound/Incisions: positive: Dressing dry and intact General: positive: No symptoms. negative: Fever - Other Other Information/Narrative: Pain 07/23 notes good pain control. Objective - Patient Data Reviewed Vital Signs: Yes Vital Signs: Vital Signs x48h Temp Pulse Resp BP Pulse Ox 08/09/18 04:50 36.7 C 87 18 106/52 L 99 08/09/18 01:10 36.8 C 87 20 109/75 99 Weight: Weight 08/07/18 08/08/18 08/09/18 23:59 23:59 23:59 Weight (kg) 99.79 kg Intake & Output: Intake and Output Totals x24h 08/07/18 08/08/18 08/09/18 23:59 23:59 23:59 Intake Total 100 3255.0 300 Output Total 2625 350 Balance 100 630.0 -50 - Lab Results Lab Results: 08/08/18 08:03 - Current Medications Current Medications: Current Medications Generic Name Dose Route Start Last Admin Trade Name Freq PRN Reason Stop Dose Admin Acetaminophen 1,000 mg 08/08/18 08:00 08/09/18 02:31 Tylenol PO 1,000 mg Q8H CONNER Administration Docusate Sodium 100 mg 08/08/18 09:00 08/09/18 08:09 Colace 100mg Capsule PO 100 mg BID CONNER Administration Lactated Ringer's 1,000 mls @ 100 mls/hr 08/07/18 20:00 08/09/18 05:12 Lr IV Not Given .Q10H CONNER Penicillin G Potassium 2,500, 100 mls @ 200 mls/hr 08/08/18 00:00 08/08/18 08:53 000 unit/ Sodium Chloride IV Not Given Q4H CONNER Oxytocin/Sodium Chloride 500 mls @ 1 mls/hr 08/08/18 01:00 08/08/18 11:00 Pitocin/Sodium Chloride IV Infused TITR CONNER Titration Protocol 1 MILLIUNIT/MIN Oxycodone HCl 5 mg 08/08/18 07:43 08/09/18 08:08 Roxicodone PO 5 mg Q4HR PRN Administration PAIN Simethicone 80 mg 08/08/18 14:00 08/09/18 08:10 Mylicon PO 80 mg TID CONNER Administration Sodium Chloride 10 ml 08/08/18 01:00 08/09/18 02:32 Normal Saline Flush 0.9% IVP 10 ml 0100,0900,1700 CONNER Administration Sodium Chloride 10 ml 08/07/18 20:00 08/08/18 20:21 Normal Saline Flush 0.9% IVP 10 ml PRN PRN Administration NEEDED PER PROVIDER ORDERS - Physical Exam Wound/Incisions: positive: Dressing dry and intact (Wound Vac functioning) General Appearance: positive: No acute distress, Alert (Ptappears to beunder rating her pain. 5-6/10) Respiratory: positive: Chest non-tender, No respiratory distress, Breath sounds nml Cardiovascular: positive: Regular rate & rhythm, No murmur, No gallop Abdomen: positive: Non-tender, Nml bowel sounds, Mass (U-1) Back: negative: CVA tenderness (R), CVA tenderness (L) Skin: positive: Color nml, No rash, Warm Extremities: negative: Calf tenderness, Guido's sign/cords Impression/Plan - Problem List Problem List: POD #1 progressing. S/P PLTC/S for intolerance of labor. Sinc pt was on Metformin will do 2 hour PP.
[2018-08-09] MEDS: IBUPROFEN 600 MG TABLET PO SCH ×2 (10:20→16:17)
[2018-08-09] MEDS ORDERED: oxyCODONE 5 MG TABLET PO SCH (17:27)
[2018-08-09] MEDS ORDERED: IBUPROFEN 600 MG TABLET PO SCH (18:00)
[2018-08-09] MEDS: IBUPROFEN 800 MG TABLET PO SCH (22:13)
[2018-08-10] MEDS: oxyCODONE 5 MG TABLET PO PRN ×2 (04:24→11:04)
[2018-08-10] MEDS: IBUPROFEN 800 MG TABLET PO SCH ×2 (04:24→11:05)
[2018-08-10] MEDS: ACETAMINOPHEN 500 MG TABLET PO SCH (05:40)
--- NOTE | 2018-08-10 08:38 | PROVIDER PROGRESS NOTE ---
Subjective - General Admit Date: 08/07/18 Procedure Date: 08/08/18 Post Op Days: 2 Procedure Performed: PLTC/S - Review of Systems Wound/Incisions: positive: Dressing dry and intact (Wound Vac functioning) General: positive: No symptoms (Yesterday pt had marked neck and incisional pain. Needed additional Oxycodone. today pain is much improved. Bresat feeding). negative: Fever Objective - Patient Data Reviewed Vital Signs: Yes Vital Signs: Vital Signs x48h Temp Pulse Resp BP Pulse Ox 08/10/18 01:08 36.7 C 75 18 144/62 H 100 Intake & Output: Intake and Output Totals x24h 08/08/18 08/09/18 08/10/18 23:59 23:59 23:59 Intake Total 3255.0 300 Output Total 2625 750 Balance 630.0 -450 - Lab Results Lab Results: 08/08/18 08:03 Other Lab Results: Lab Results x24hrs 08/10/18 08/09/18 Range/Units 07:16 10:39 POC Whole Bld Glucose 84 124 H (70 - 100) mg/dL - Current Medications Current Medications: Current Medications Generic Name Dose Route Start Last Admin Trade Name Freq PRN Reason Stop Dose Admin Acetaminophen 1,000 mg 08/08/18 08:00 08/10/18 05:40 Tylenol PO 1,000 mg Q8H CONNER Administration Docusate Sodium 100 mg 08/08/18 09:00 08/09/18 22:09 Colace 100mg Capsule PO 100 mg BID CONNER Administration Lactated Ringer's 1,000 mls @ 100 mls/hr 08/07/18 20:00 08/09/18 05:12 Lr IV Not Given .Q10H CONNER Penicillin G Potassium 2,500, 100 mls @ 200 mls/hr 08/08/18 00:00 08/08/18 08:53 000 unit/ Sodium Chloride IV Not Given Q4H CONNER Oxytocin/Sodium Chloride 500 mls @ 1 mls/hr 08/08/18 01:00 08/08/18 11:00 Pitocin/Sodium Chloride IV Infused TITR CONNER Titration Protocol 1 MILLIUNIT/MIN Ibuprofen 800 mg 08/09/18 22:00 08/10/18 04:24 Motrin PO 800 mg Q6H CONNER Administration Oxycodone HCl 5 - 10 mg 08/09/18 20:00 08/10/18 04:24 Roxicodone PO 5 mg Q4HR PRN Administration PAIN Simethicone 80 mg 08/08/18 14:00 08/09/18 22:09 Mylicon PO 80 mg TID CONNER Administration Sodium Chloride 10 ml 08/08/18 01:00 08/09/18 02:32 Normal Saline Flush 0.9% IVP 10 ml 0100,0900,1700 CONNER Administration Sodium Chloride 10 ml 08/07/18 20:00 08/08/18 20:21 Normal Saline Flush 0.9% IVP 10 ml PRN PRN Administration NEEDED PER PROVIDER ORDERS - Physical Exam Wound/Incisions: positive: Dressing dry and intact (Wound Vac with good suction) Neck: positive: Nml inspection Respiratory: positive: Chest non-tender, No respiratory distress, Breath sounds nml Cardiovascular: positive: Regular rate & rhythm, No murmur, No gallop Abdomen: positive: Non-tender, Nml bowel sounds, Mass (U-2) Back: negative: CVA tenderness (R), CVA tenderness (L) Extremities: negative: Calf tenderness, Guido's sign/cords Neurologic/Psychiatric: positive: Oriented x3 Impression/Plan - Problem List Problem List: POD #2 progressing well. rye neck, Torticollis. improving with time. use local heat. pain is now 1/10. Send home RTC 1 week. Discharge meds Oxycodone 5 mg Mortin 800 mg colace 100 mg Micronore Start 2 weeks
--- NOTE | 2018-08-10 09:03 | Discharge Plan ---
Discharge Plan Disposition: 01 Home, Self Care Condition: Good Diet: Regular Activity Restrictions: No Restrictions (pelvic rest 6 weeks) Shower Restrictions: No Driving Restrictions: Yes (not while taking narcotics) No Smoking: If you smoke, Please STOP! Call for help. Follow-up with: QUENTIN SARGENT PA-C [Primary Care Provider] -
[2018-08-10] MEDS: DOCUSATE SODIUM 100 MG CAPSULE PO SCH (11:06)
--- NOTE | 2018-08-10 11:06 | DISCHARGE SUMMARY ---
Physician: Jah Rdz MD DATE OF ADMISSION: 08/07/2018 DATE OF DISCHARGE: 08/10/2018 ADMITTING DIAGNOSIS 1. A 39-week gestation. 2. Social induction. DISCHARGE DIAGNOSES 1. A 39-week gestation. 2. Social induction. 3. intolerance of labor. PROCEDURES 1. Penicillin prophylaxis for group B strep sepsis. 2. Epidural. 3. Pitocin augmentation. 4. Primary low transverse section. PRESENTING HISTORY: The patient is a 23-year-old G2, P1, female who is 39 weeks at time of induction . Her course had been significant and with episodes of dyspnea. She also had a history of PCOS, however, initial blood sugar evaluation was normal, but her 28 weeks showed an elevated 50 gra m with a normal 3-hour GTT. She tested positive for group B strep. Her was due to deploy on 08/11/2018, thus she was brought in at 39 weeks for induction of labor. She had a history of having a previous vaginal delivery. On admission, her cervix was 3 cm, -4, 50%vertex. LABORATORIES: On admission, white count was 10.4, hemoglobin was 12.3, hematocrit 37.1, platelets ar e 199. First day postop, her CBC showed a white count of 14, hemoglobin was 11.1, hematocrit was 34. 5, and platelets 163. Because of her history of PCOS and being on metformin, a 2-hour postprandial w as obtained on the 08/09/2018 which was 124. Her fasting blood sugar on 08/10/2018 was 28. HOSPITAL COURSE: The patient admitted for induction of labor. She was started on penicillin for chandrakant up B strep prophylaxis. She had an epidural placed. She had artificial rupture of membranes. Follo wing this, she developed a prolonged bradycardia with a susana of 70 running in the 80s-90s. This las marty for roughly 5+ minutes. She received intrauterine resuscitation of Pitocin as well as terb utaline. The heart rate responded to normal. Because she had a long course of labor ahead of her, it was decided to proceed with section. This was performed, and at time of delivery, a n of 9 and 9 with an infant was delivered. Her postop course has been unremarkable with the ex ception of yesterday a very sore neck as well as incisional pain following getting out of the shower. She relates that this is almost totally resolved at this time. She states she is feeling well. Minal crane is being discharged to home today with instructions to followup in the office in 1 week. DISCHARGE MEDICATIONS: Those of: 1. Oxycodone 5 mg, #15. 2. Motrin 800 mg, #30. 3. Colace 100 mg, # 30. 4. Micronor #84. She is to start these 2 weeks . We have discussed the issues of mastitis as well as contraception. We have also encouraged her to br nicole. TD: 08/10/2018 09:05
[2018-08-10 11:55] VITALS: BP 116/72
--- NOTE | 2018-08-10 15:06 | Labor Flowsheet ---
Labor Flowsheet Datetime Report Generated by CPN: 08/10/2018 15:06 Datetime: 08/10/2018 11:45 VITAL SIGNS NBP Sys/Sharla/Mean (mmHg): 116 : 72 : 81 Pulse: 88 Datetime: 08/08/2018 21:14 SpO2 (%): 99 Datetime: 08/08/2018 10:48 Stage of : Datetime: 08/08/2018 08:55 LaborFlag: Labor Datetime: 08/08/2018 07:54 Membranes Ruptured Date/Time: 08/08/2018 01:55 Datetime: 08/08/2018 06:25 ASSESSMENT A Monitor Mode: Doppler FHR Baseline Rate : 152 (Annotations: Doppler off; abd prep by OR Circ RN) Datetime: 08/08/2018 06:10 Patient Care Comments: To OR via bed Datetime: 08/08/2018 05:55 FHR Baseline Changes: No Baseline Change Variability: Moderate 6-25 bpm Accelerations: 15X15 Decelerations: None Category: Category I Oxygen Amount (LPM): 10 Oxygen Method: Non-Rebreather Datetime: 08/08/2018 05:38 Temperature (C): 37.3 Datetime: 08/08/2018 05:33 Provider Reviewed Strip: Yes Strip Reviewed by: Dr Rdz Datetime: 08/08/2018 05:30 Respirations: 28 Datetime: 08/08/2018 05:25 UTERINE ACTIVITY Monitor Mode: External Frequency (min): 2-3 Quality: Moderate Duration (sec): 50-60+ Pattern: Normal: <= 5 Contractions in 10 Minutes Resting Tone (Palpate): Relaxed Actions for Decelerations: Side to Side; Oxygen Applied; Pitocin Off; IV Bolus; Sterile Vagin al Exam; Blood Pressure; Provider Notified; Other (Annotations: Terbutaline for uterine resuscitation ) Datetime: 08/08/2018 05:24 Comments: fse placed Datetime: 08/08/2018 05:22 Tocolytics: Terbutaline 0.25mg Subcutaneous Datetime: 08/08/2018 05:18 Medication Comments: pit off Datetime: 08/08/2018 05:15 MEDICATIONS Pitocin (milliunits): Discontinued Datetime: 08/08/2018 05:12 Patient Position/Activity: Right Lateral Datetime: 08/08/2018 05:09 VAGINAL EXAM Dilatation (cm): 5.0 Effacement (%): 80 Station: -1 Exam by: Spear RNC Vaginal Exam Comments: reported inc pressure, zuleyma noted Datetime: 08/08/2018 05:06 COMMUNICATION Communication: Call/Page Placed to Provider Provider Notified (Name): CNM Fausto Notification Reason: Status Update; Status; Labor Status Communication Comments: Provider asked to come in to evaluate pt and FHR tracing due to recurrent v ariables. Datetime: 08/08/2018 05:00 ANESTHESIA Anesthesia Plans: Epidural Anesthesia Level Check: T7 Datetime: 08/08/2018 04:30 Pitocin Checklist: At Least 1 Acceleration of 15 bpm x 15 Seconds in 30 Minutes or Adequate Variabi lity; No More than 1 Late Deceleration Occurred in Past 30 Minutes; No More than 2 Variable Decelerat ions > 60 Seconds in Duration and decreasing >60 bpm in 30 minutes; No More than 5 Uterine Contractio ns in 10 Minutes for any 20 Minute Interval; Uterus Palpates Soft between Contractions Datetime: 08/08/2018 04:26 Amniotic Fluid Color: Clear Amniotic Fluid Amount: Moderate Cervix, Consistency: Soft Cervix, Position: Anterior Datetime: 08/08/2018 04:02 Contraction Comments: 5 UCs in 10min with occas coupling PAIN Pain Scale: 0 Pain Presence: None/Denies Pain Type: N/A Pain Goal: 5 Pain Assessment Comments: occas napping Datetime: 08/08/2018 03:00 Pain Relief Measures: Epidural Given Datetime: 08/08/2018 02:25 Antibiotics: Penicillin IV (Units) @ 2.5M Datetime: 08/08/2018 02:06 Monitor Interventions for UA: [place] Adjusted Datetime: 08/08/2018 02:00 Temperature Route: Oral Datetime: 08/08/2018 01:55 Membrane Status: Ruptured Membranes Rupture Method: Artificial Amniotic Fluid Odor: Normal Datetime: 08/08/2018 01:54 Vaginal Bleeding: None Datetime: 08/08/2018 01:50 I/O Interventions: Stewart Cath Inserted Datetime: 08/08/2018 00:25 Maternal Comments: nausea now resolved, pt states feeling much better Datetime: 08/08/2018 00:18 MATERNAL ASSESSMENT Level of Consciousness: Fully Conscious Headache: Denies Nausea/Vomiting: Present RUQ Epigastric Pain: Denies Datetime: 08/08/2018 00:16 PATIENT CARE IV/Blood Work: IV Bolus Started Datetime: 08/07/2018 23:30 Pain Coping: Talking Through Contractions Datetime: 08/07/2018 22:17 Epidural Procedure: Test Dose Datetime: 08/07/2018 22:02 PROCEDURE TIME OUT Procedure Type: 2001 Procedure Verify: Correct Patient Identity; Correct Side and Site are Marked; Accurate Procedure Co nsent Form; Agreement on Procedure to be Done; Correct Patient Position; Addressed Need to Administer Antibiotics or Fluids for Irrigation; Safety Precautions Based on Patient History or Medication Use Epidural Positioning: Sitting Datetime: 08/07/2018 21:50 TEACHING Instructional Method: Verbal; Written; Patient Instructed; Family/Support Person Instructed; Verbal ized Understanding Plan of Care: Plan of Care Discussed Pain Management: Epidural Datetime: 08/07/2018 20:50 Anesthesia Comments: Per discussion between providers, GERRY Lambert and MARIBEL Pugh, will proceed wit h epidural at this time prior to start of PCN and start of induction (planned AROM). Pt agreeable wi th plan.
== END 2018-08-10 13:00 | disposition home or self-care (01) | DRG 788 ==
LOC: WFO 19:33 → FBP 19:35 → WFO 20:17 → FBP 20:18 → OBSVTOIN 20:35
PROVIDERS: ADMIT Nurse Practitioner Obstetrics & Gynecology; ATTEND Nurse Practitioner Obstetrics & Gynecology
PROC: 0UB10ZZ Excision of Left Ovary, Open Approach (ICD-10-PCS; 2018-08-08)
PROC: 3E033VJ Introduction of Other Hormone into Peripheral Vein, Percutaneous Approach (ICD-10-PCS; 2018-08-08)
PROC: 10907ZC Drainage of Amniotic Fluid, Therapeutic from Products of Conception, Via Natural or Artificial Opening (ICD-10-PCS; 2018-08-08)
PROC: 10D00Z1 Extraction of Products of Conception, Low, Open Approach (ICD-10-PCS; principal; 2018-08-08 06:06)
DX: O99.824 Streptococcus B carrier state complicating childbirth (principal); O99.214 Obesity complicating childbirth; O99.284 Endocrine, nutritional and metabolic diseases complicating childbirth; E28.2 Polycystic ovarian syndrome; O76 Abnormality in fetal heart rate and rhythm complicating labor and delivery; O34.83 Maternal care for other abnormalities of pelvic organs, third trimester; N83.292 Other ovarian cyst, left side; O69.89X0 Labor and delivery complicated by other cord complications, not applicable or unspecified; O99.810 Abnormal glucose complicating pregnancy; Z37.0 Single live birth; Z3A.39 39 weeks gestation of pregnancy; Z79.84 Long term (current) use of oral hypoglycemic drugs
CPT/HCPCS: 36415; 85025; 96365; A9270; G0378; G0379; J0131; J7120